=== PATIENT | male | born 1960 | race American Indian/Alaskan Native ===

== ENCOUNTER 2017-12-26 21:56 | Emergency (ER) | payer OTHER ==
[2017-12-27 01:16] VITALS: BP 130/85
[2017-12-27] MEDS ORDERED: TORADOL IM ONE (01:40)
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
== END 2017-12-27 01:57 | disposition home or self-care (01) ==
LOC: ED 21:56
DX: S16.1XXA Strain of muscle, fascia and tendon at neck level, initial encounter (principal); V89.2XXA Person injured in unspecified motor-vehicle accident, traffic, initial encounter; Y93.9 Activity, unspecified; Y92.89 Other specified places as the place of occurrence of the external cause; Y99.8 Other external cause status; Z88.2 Allergy status to sulfonamides; Z88.5 Allergy status to narcotic agent
CPT/HCPCS: 96372; 99282; J1885

== ENCOUNTER 2017-12-30 18:59 | Emergency (ER) | payer OTHER ==
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
[2017-12-31] MEDS ORDERED: PERCOCET 5/325 PO ONE (01:09)
[2017-12-31] MEDS ORDERED: BENADRYL PO ONE (01:09)
[2017-12-31 02:05] VITALS: BP 134/87
== END 2017-12-31 01:34 | disposition home or self-care (01) ==
LOC: ED 18:59
DX: S16.1XXD Strain of muscle, fascia and tendon at neck level, subsequent encounter (principal); Z88.6 Allergy status to analgesic agent; Z88.2 Allergy status to sulfonamides; X58.XXXD Exposure to other specified factors, subsequent encounter
CPT/HCPCS: 99282

== ENCOUNTER 2022-01-16 23:39 | Emergency (ER) | payer OTHER ==
--- NOTE | 2022-01-17 04:31 | Emergency Department Report ---
- General Chief complaint: Allergic Reaction Stated complaint: NOSE ALLERGY/RIGHT HIP Time Seen by Provider: 01/17/22 04:16 Source: patient Mode of arrival: Ambulatory Limitations: No Limitations - History of Present Illness Initial comments: 61 yo black male presents to ed for evaluation of pain, swelling and erythema to right side of nose. He states that he has had the same thing happen before. He also c/o right hip pain. He denies injury or trauma and states that he has chronic pain to area. MD complaint: abscess/boil Tetanus Up to Date: yes Location: generalized, face Severity: moderate Severity scale (0 -10): 6 Quality: burning, aching Consistency: constant Improves with: none Treatments Prior to Arrival: none - Related Data Previous Rx's Medication Instructions Recorded Last Taken Type Ibuprofen [Motrin 800 MG tab] 800 mg PO Q8HR #30 tablet 12/27/17 Unknown Rx methOCARBAMOL [Robaxin TAB] 500 mg PO BID #14 tab 12/27/17 Unknown Rx Cyclobenzaprine [Flexeril 10 MG 10 mg PO TID PRN #12 tablet 12/31/17 Unknown Rx TAB] traMADoL [Ultram 50 MG tab] 50 mg PO Q6HR PRN #12 tablet 12/31/17 Unknown Rx DOXYCYCLINE Hyclate [Vibramycin] 100 mg PO Q12HR #14 capsule 01/17/22 Unknown Rx traMADoL [Ultram 50 MG tab] 25 - 502 mg PO Q6HR PRN #12 tablet 01/17/22 Unknown Rx Allergies Allergy/AdvReac Type Severity Reaction Status Date / Time hydrocodone Allergy Itching Verified 08/18/15 20:15 Sulfa (Sulfonamide Allergy Rash Verified 12/26/17 22:07 Antibiotics) Abscess Boil HPI - HPI Chief Complaint: Allergic Reaction Stated Complaint: NOSE ALLERGY/RIGHT HIP Time Seen by Provider: 01/17/22 04:16 Home Medications: Previous Rx's Medication Instructions Recorded Last Taken Type Ibuprofen [Motrin 800 MG tab] 800 mg PO Q8HR #30 tablet 12/27/17 Unknown Rx methOCARBAMOL [Robaxin TAB] 500 mg PO BID #14 tab 12/27/17 Unknown Rx Cyclobenzaprine [Flexeril 10 MG 10 mg PO TID PRN #12 tablet 12/31/17 Unknown Rx TAB] traMADoL [Ultram 50 MG tab] 50 mg PO Q6HR PRN #12 tablet 12/31/17 Unknown Rx DOXYCYCLINE Hyclate [Vibramycin] 100 mg PO Q12HR #14 capsule 01/17/22 Unknown Rx traMADoL [Ultram 50 MG tab] 25 - 502 mg PO Q6HR PRN #12 tablet 01/17/22 Unknown Rx Allergies/Adverse Reactions: Allergies Allergy/AdvReac Type Severity Reaction Status Date / Time hydrocodone Allergy Itching Verified 08/18/15 20:15 Sulfa (Sulfonamide Allergy Rash Verified 12/26/17 22:07 Antibiotics) ED Review of Systems ROS: Stated complaint: NOSE ALLERGY/RIGHT HIP Other details as noted in HPI Comment: All other systems reviewed and negative Constitutional: denies: chills, fever Respiratory: denies: shortness of breath Cardiovascular: denies: chest pain Gastrointestinal: denies: abdominal pain, nausea, vomiting Musculoskeletal: denies: back pain Neurological: denies: headache ED Past Medical Hx - Past Medical History Additional medical history: Carpal tunnel syndrome - Surgical History Additional Surgical History: carpal tunnel sx - Social History Smoking Status: Never Smoker Substance Use Type: None - Medications Home Medications: Home Medications Medication Instructions Recorded Confirmed Last Taken Type Ibuprofen [Motrin 800 MG tab] 800 mg PO Q8HR #30 tablet 12/27/17 Unknown Rx methOCARBAMOL [Robaxin TAB] 500 mg PO BID #14 tab 12/27/17 Unknown Rx Cyclobenzaprine [Flexeril 10 MG 10 mg PO TID PRN #12 tablet 12/31/17 Unknown Rx TAB] traMADoL [Ultram 50 MG tab] 50 mg PO Q6HR PRN #12 tablet 12/31/17 Unknown Rx DOXYCYCLINE Hyclate [Vibramycin] 100 mg PO Q12HR #14 capsule 01/17/22 Unknown Rx traMADoL [Ultram 50 MG tab] 25 - 502 mg PO Q6HR PRN #12 tablet 01/17/22 Unknown Rx ED Physical Exam - General Limitations: No Limitations General appearance: alert, in no apparent distress - Head Head exam: Present: atraumatic, normocephalic - Eye Eye exam: Present: normal appearance. Absent: conjunctival injection - ENT ENT exam: Present: other (erythema and edema noted to right side of nose. no drainage noted. ) - Respiratory Respiratory exam: Absent: respiratory distress - Cardiovascular Cardiovascular Exam: Present: regular rate - GI/Abdominal GI/Abdominal exam: Absent: distended - Expanded Lower Extremity Exam Right Hip exam: Present: normal inspection, tenderness. Absent: swelling, abrasion, laceration, erythema, shortening Neuro vascular tendon exam: Present: no vascular compromise. Absent: pulse deficit, abnormal cap refill, motor deficit, sensory deficit - Back Exam Back exam: Present: normal inspection. Absent: CVA tenderness (R), CVA tenderness (L) - Neurological Exam Neurological exam: Present: alert, oriented X3 - Psychiatric Psychiatric exam: Present: normal affect, normal mood - Skin Skin exam: Present: warm, dry, intact, erythema (to nose) ED Course Vital Signs 01/17/22 05:01 Pulse Rate 72 Respiratory 12 Rate Blood Pressure 156/82 [Right] O2 Sat by Pulse 100 Oximetry ED Medical Decision Making - Medical Decision Making 61 yo black male presents to ed for evaluation of pain, swelling and erythema to right side of nose. He states that he has had the same thing happen before. He also c/o right hip pain. He denies injury or trauma and states that he has chronic pain to area. Exam consistent with cellulitis of nose and chronic right hip pain. Patient will be treated with 7 day coarse of doxycycline and naproxen. He is advised to take medications as prescribed and follow up with pcp if no improvement or worsening symptoms. He verbalized understanding of and agreement with plan of care. Critical care attestation.: If time is entered above; I have spent that time in minutes in the direct care of this critically ill patient, excluding procedure time. ED Disposition Clinical Impression: Cellulitis of nose, external, Right hip pain Disposition: HOME / SELF CARE / HOMELESS Is pt being admited?: No Does the pt Need Aspirin: No Condition: Stable Instructions: Hip Pain, How to Use Cold Therapy, [id number], Cellulitis, Adult, [id number] Additional Instructions: Take medications as prescribed. Follow-up with primary care provider if no improvement or worsening symptoms. Prescriptions: traMADoL [Ultram 50 MG tab] 25 - 502 mg PO Q6HR PRN #12 tablet PRN Reason: Pain DOXYCYCLINE Hyclate [Vibramycin] 100 mg PO Q12HR #14 capsule Referrals: CON DING MD [Staff Physician] - 3-5 Days Forms: Work/School Release Form(ED) Time of Disposition: 04:32
[2022-01-17 05:01] VITALS: BP 156/82
== END 2022-01-17 05:20 | disposition home or self-care (01) ==
LOC: ED 23:39
DX: J34.0 Abscess, furuncle and carbuncle of nose (principal); M25.551 Pain in right hip; Z88.2 Allergy status to sulfonamides; Z91.09 Other allergy status, other than to drugs and biological substances; Z79.899 Other long term (current) drug therapy
CPT/HCPCS: 99282